=== PATIENT | male | born 1980 ===

== ENCOUNTER 2016-12-16 17:10 | Emergency (ER) | payer MEDICAID ==
[2016-12-16 17:28] VITALS: BP 143/89
--- OUTSIDE RECORDS SUMMARY | 2016-12-16 17:39 | XMS REPORT | Continuity of Care Document ---
:1980 Author Organization [facility] ([facility]) Address [address] [place] [address] Phone [phone] Care Team Providers Name Role Phone [employer] [facility] [id number] Primary Care Provider [phone] Source Comments This disclosure is being made pursuant to the Care Everywhere program, applicable federal and state laws, and may not contain all informaitonavailable regarding this patient.[facility] ([facility]) Active Allergies and Adverse Reactions No Known Allergies Current Medications Prescription Sig. Disp. Refills Start Date End Date Status escitalopram Take 20 mg by mouth Active oxalate 20 mg daily. tablet oxyCODONE-acetamino Take 1-2 tablets by 80 tablet 0 05/29/2016 Active phen 5-325 mg per mouth every 4 hours tablet as needed for Pain. Do NOT exceed 4000 mg of acetaminophen per 24 hours. docusate 100 mg Take 1 capsule (100 60 capsule 3 05/29/2016 Active capsule mg total) by mouth 2 times daily. ibuprofen 200 mg Take 800 mg by mouth Active tablet every 6 hours as needed. Active Problems Not on file Social History Tobacco Use Types Packs/Day Years Used Date Current Every Day Smoker Cigarettes 1 15 Smokeless Tobacco: Current User Chew Tobacco Cessation:Ready to Quit: No; Counseling Given: Yes Comments: Last Filed Vital Signs Vital Sign Reading Time Taken Blood Pressure 122/67 05/29/2016 3:15 PM CDT Pulse 67 05/29/2016 9:30 AM CDT Temperature 36 C (96.8 F) 05/29/2016 2:45 PM CDT Respiratory Rate 20 05/29/2016 9:30 AM CDT Height 1.75 m (5' 8.9") 05/25/2016 9:30 AM CDT Weight 57.4 kg (126 lb 8.7 oz) 05/29/2016 9:30 AM CDT Body Mass Index 18.74 05/29/2016 9:30 AM CDT Oxygen Saturation 96% 05/29/2016 3:15 PM CDT Plan of Care Health Maintenance Due Date Last Done Comments Hepatitis B Vaccine (1 of 3 - Primary Series) 1980 Tdap Vaccine 1989 Lipid Disorder Screening 02/19/1996 MMR Vaccine 02/19/1996 Td Vaccine 02/19/1996 Pneumococcal Vaccine (1 of 1 - PPSV23) 1997 Influenza Vaccine: Seasonal (#1) 04/30/2016 Results from Last 3 Months Not on file
[2016-12-16] MEDS ORDERED: AMOXICILLIN TRIHYDRATE 250 MG CAPSULE PO ONE (17:42)
[2016-12-16] MEDS ORDERED: HYDROcodone/ACETAMINOPHEN 1 EACH TABLET PO ONE (17:43)
[2016-12-16] MEDS ORDERED: AMOXICILLIN TRIHYDRATE 250 MG CAPSULE ONE (17:48)
[2016-12-16] MEDS ORDERED: HYDROcodone/ACETAMINOPHEN 1 EACH TABLET ONE (17:48)
--- NOTE | 2016-12-16 17:58 | ERNOTE ---
ENT HPI Date of Service: 12/16/16 Presenting Symptoms: dental pain Time Seen by Provider: 12/16/16 17:30 Source: patient Exam Limitations: no limitations - Immun/Allergies/Home Medications Immunizations: IMMUNIZATION HX Immunizations Up to Date Yes History of Influenza Vaccine No Hx Pneumococcal Vaccination No Allergies/Adverse Reactions: Allergies Allergy/AdvReac Type Severity Reaction Status Date / Time No Known Allergies Allergy Verified 12/16/16 17:28 Home Medications: HOME MEDICATIONS Amoxicillin Trihydrate [Amoxil] 500 mg PO Q8H #30 capsule 12/16/16 [Last Taken Unknown] Ibuprofen [Motrin] 600 mg PO TID PRN #30 tab 12/16/16 [Last Taken Unknown] - Pain Score Pain Score #1 Pain Score: 8 - History of Present Illness Narrative: patient is a 36 year old male who presents to the ED with complaints of left upper tooth pain. States he felt it "crack off" Saturday night yet pain began to get worse yesterday. States had some intermittent fever and chills [employer]. Patient states he consumed Ibuprofen at 0830 this morning and 4 ES Tylenol 1700 tonight. States he vomited x 2 earlier today after taking Ibuprofen. Date (Duration): 12/16/16 Time (Timing): 08:30 Severity: Present: mild ENT Location: Present: dental Prearrival Treatment: Present: no prearrival treatment Modifying Factors - Improves: Reports: nothing Modifying Factors - Worsens: Reports: nothing Associated Symptoms - ENT: Reports: fever, facial pain/swelling, tooth pain. Denies: malaise, poor fluid intake, poor solid intake, cough, sore throat, drooling, nasal congestion/drainage, jaw swelling, change in hearing, ear drainage, headache Review of Systems - Review of Systems Constitutional: Present: See HPI, fever. Absent: chills, diaphoresis, weakness , fatigue EYE: Present: no symptoms reported ENT: Absent: ear pain, ear discharge, nose congestion, nasal drainage, sore throat, throat swelling Respiratory: Absent: shortness of breath, cough Cardiology: Absent: chest pain, palpitations Gastrointestinal/Abdominal: Present: nausea, vomiting. Absent: diarrhea Genitourinary: Present: no symptoms reported Musculoskeletal: Present: no symptoms reported Skin: Present: no symptoms reported Neurological: Present: no symptoms reported - Patient's Past Medical History Patient History - Medical: Anxiety, Depression Patient History - Cardiac/Respiratory: No pertinent hx Patient History - Cancer: No Hx of Cancer Patient History - Surgical Procedures: Back Surgery, Other Patient History - Other: None - Social History Living Situations: significant other Abuse History: No History of abuse Psych History: Hx of Anxiety, Hx of Depression Smoking Status: Current every day smoker Have you smoked in the past 12 months: Yes Do you dip or chew tobacco: No Alcohol Use: none Drug Use: none - Immunizations Immunizations Up to Date: Yes Hx Pneumococcal Vaccination: No History of Influenza Vaccine: No Physical Exam - Physical Exam General Appearance: Present: wd/wn, alert, no apparent distress Eye Exam: Normal inspection: bilateral, PERRL: bilateral Ears, Nose, Throat: Present: normal ENT inspection, normal pharynx, other - poor dentition, cracked left upper canine tooth. Absent: pharyngeal erythema, pharyngeal swelling, tonsillar exudate, tonsillar swelling, dry mucous membranes Neck: Present: normal inspection, nontender. Absent: lymphadenopathy (R), lymphadenopathy (L) Respiratory: Present: no respiratory distress, normal breath sounds, no accessory muscle use, chest nontender, lungs clear Cardiovascular/Chest: Present: regular rate, rhythm, no murmur, normal peripheral pulses Extremity Exam: Present: normal inspection, non-tender, normal range of motion, no edema Neurological Exam: Present: alert, oriented, normal mood/affect, no motor/ sensory deficits Skin Exam: Present: normal color, warm/dry Lymphatic Exam: Present: no adenopathy ED Progress - Vital Signs Patient's Vital Signs:: I have reviewed the patient's vital signs. Vital Signs: Vital Signs 12/16/16 17:23 Temperature 36.7 C Pulse Rate 62 Respiratory 15 Rate Blood Pressure 143/89 O2 Sat by Pulse 97 Oximetry - Progress/Reassessment Chief Complaint: Dental Problem Departure Clinical Impression: Dental caries, Pain, dental Clinical Impression: (Ruled Out): Broken tooth injury - Departure Disposition: Home Follow Up Needed Instructions: Tooth Injuries, Kfma-go-Mweg, Dental Caries Additional Instructions: Maximum dose of Tylenol in 24 hour period is 4000 mg. This means you cannot consume more than 8 extra strength Tylenol (500 mg pills) in a 24 hours period. This can lead to serious liver/kidney injury. Each Alice has 325 mg of Tylenol in each pill. Be mindful of how much Tylenol you take with the Alice--- again, do not exceed 4000 mg. Heating packs to left side of face. Make dental appointment on Saturday. Take antibiotic along with narcotic and finish entire regimen of antibiotic Prescriptions: Amoxicillin Trihydrate [Amoxil] 500 mg PO Q8H #30 capsule Ibuprofen [Motrin] 600 mg PO TID PRN #30 tab PRN Reason: Pain
== END 2016-12-16 17:58 | disposition home or self-care (01) ==
LOC: ER 17:10
DX: K02.9 Dental caries, unspecified (principal)